=== PATIENT | male | born 1955 | race Caucasian/White ===

== ENCOUNTER → 2020-07-11 | Outpatient (CLI) | payer OTHER ==
[~2020-07-11] MED LIST: LANS30CA PO; LEVO50TA5 PO; SIMV20TA19 PO
== END | disposition home or self-care (01) ==
LOC: STAR 12:32
PROVIDERS: ATTEND Surgery
DX: Z01.818 Encounter for other preprocedural examination (principal); K46.9 Unspecified abdominal hernia without obstruction or gangrene; Z20.828 Contact with and (suspected) exposure to other viral communicable diseases
CPT/HCPCS: 87635; 93005

== ENCOUNTER 2020-07-24 11:08 | Day surgery (SDC) | payer OTHER ==
[~2020-07-24] VITALS: Ht 177.8 cm; Wt 94.4 kg
[~2020-07-24 11:08] MED LIST changes: +BUPIVACAINE/PF 0.5% ONE; +BUPIVACAINE/PF-EPI 0.5% 1:200K ONE
[2020-07-24] MEDS ORDERED: LACTATED RINGERS 1,000 ML IV SCH (11:30)
[2020-07-24] MEDS ORDERED: CHLORHEXIDINE 15 ML UDC MM ONE (11:30)
[2020-07-24 11:39] VITALS: BP 152/94
[2020-07-24] MEDS ORDERED: PROPOFOL 10 MG/ML, 20ML ONE (12:21)
[2020-07-24] MEDS ORDERED: FENTANYL PF 100 MCG/2ML ONE ×3 (12:21→13:56)
[2020-07-24] MEDS ORDERED: LIDOCAINE-MPF 2% ,5ML ONE (12:21)
[2020-07-24] MEDS ORDERED: CEFAZOLIN 1,000 MG ONE ×2 (12:37)
[2020-07-24] MEDS ORDERED: ONDANSETRON 2MG/ML, 2ML IVPush PRN (13:00)
[2020-07-24] MEDS ORDERED: OXYcodone 5 MG/5 ML ORAL.SOL UDC PO PRN (13:00)
[2020-07-24] MEDS ORDERED: ACETAMINOPHEN 325 MG TABLET PO PRN (13:00)
[2020-07-24] MEDS ORDERED: KETOROLAC 30 MG/1 ML ONE (13:29)
[2020-07-24] MEDS ORDERED: ONDANSETRON 2MG/ML, 2ML ONE (13:29)
[2020-07-24] MEDS ORDERED: SUGAMMADEX 200 MG/2 ML IVPush ONE (13:29)
[2020-07-24] MEDS ORDERED: ACETAMINOPHEN 650 MG/20.3 ML UDC ONE (13:56)
[2020-07-24] MEDS ORDERED: OXYcodone 5 MG/5 ML ORAL.SOL UDC ONE (13:56)
[2020-07-24] MEDS ORDERED: ACETAMINOPHEN 325 MG TABLET ONE (13:56)
[2020-07-24] MEDS ORDERED: METHOCARBAMOL 1,000 MG in DEXTROSE 5% 100 ML IV ONE (14:00)
[2020-07-24] MEDS: FENTANYL PF 100 MCG/2ML IV PRN ×2 (14:00→14:30)
== END 2020-07-24 16:00 | disposition home or self-care (01) ==
LOC: OUT 11:08
PROVIDERS: ATTEND Surgery
DX: K42.9 Umbilical hernia without obstruction or gangrene (principal); K21.9 Gastro-esophageal reflux disease without esophagitis; G47.30 Sleep apnea, unspecified; E78.00 Pure hypercholesterolemia, unspecified; F17.210 Nicotine dependence, cigarettes, uncomplicated; Z20.828 Contact with and (suspected) exposure to other viral communicable diseases; Z79.890 Hormone replacement therapy; Z79.899 Other long term (current) drug therapy; Z98.890 Other specified postprocedural states; Z91.018 Allergy to other foods; Z80.0 Family history of malignant neoplasm of digestive organs
CPT/HCPCS: 49652; 87635; C1781; J0690; J1885; J2405; J2704; J2800; J3010; S2900

== ENCOUNTER → 2020-09-17 | Outpatient (CLI) | payer OTHER ==
[~2020-09-17] MED LIST changes: +ASCO500T8 PO; -BUPIVACAINE/PF 0.5% ONE; -BUPIVACAINE/PF-EPI 0.5% 1:200K ONE; +CHOL10003 PO; +FISH400C3 PO; +GLUC-111 PO; +LEVO125T5 PO; +RED600CA2 PO; +co Q10 PO
[2020-09-17 11:05] LABS: BASOPHILS % (AUTO) 1 % (0-1); EOSINOPHILS % (AUTO) 1 % (1-7); LYMPHOCYTES % (AUTO) 32 % (22-44); MD NO; MEAN CORPUSCULAR HEMOGLOBIN 30.2 pg (27.5-34.5); MEAN CORPUSCULAR HGB CONC 34.3 g/dL (33.2-36.2); MEAN PLATELET VOLUME 9.8 fL (7.4-10.4); MONOCYTES % (AUTO) 11 % (2-9); NEUTROPHILS % (AUTO) 56 % (42-75); PLATELET COUNT 209 x10^3/uL (130-400); RED BLOOD COUNT 5.12 x10^6/uL (4.38-5.82); RED CELL DISTRIBUTION WIDTH 13.4 % (9.4-14.8)
[2020-09-17 11:11] LABS: ANION GAP 5 mmol/L (5-15); CALCIUM 9.6 mg/dL (8.5-10.1); CHLORIDE 112 mmol/L (98-107)
[2020-09-17 11:14] LABS: INTERNATIONAL NORMALIZED RATIO 1.01 (0.93-1.1); PROTHROMBIN TIME 10.8 Seconds (9.6-11.5)
== END | disposition home or self-care (01) ==
LOC: STAR 09:32
PROVIDERS: ATTEND Orthopaedic Surgery
DX: Z01.812 Encounter for preprocedural laboratory examination (principal); Z20.822 Contact with and (suspected) exposure to COVID-19; M17.12 Unilateral primary osteoarthritis, left knee; R94.31 Abnormal electrocardiogram [ECG] [EKG]
CPT/HCPCS: 80048; 83036; 85025; 85610; 85730; 87081; 87147; 87635; 87806; 93005; G0475

== ENCOUNTER 2020-09-23 12:04 | Observation (INO) | payer OTHER ==
[~2020-09-23] VITALS: Ht 177.8 cm; Wt 96.3 kg
[~2020-09-23 12:04] MED LIST changes: +FENTANYL PF 250 MCG/5ML ONE; +KETOROLAC 60 MG/2 ML ONE; +MIDAZOLAM 1 MG/ML, 2ML ONE; +ROPIvacaine/PF 0.2%, 20 ML ONE
[2020-09-23] MEDS ORDERED: TRANEXAMIC ACID 1,000 MG in SODIUM CHLORIDE 0.9% 100 ML IVPB ONE (12:30)
[2020-09-23] MEDS ORDERED: METOCLOPRAMIDE 5 MG/ML, 2ML IVPush PRN (12:30)
[2020-09-23] MEDS ORDERED: DIPHENHYDRAMINE 50 MG/ML, 1ML IVPush PRN (12:30)
[2020-09-23] MEDS ORDERED: ONDANSETRON 4 MG TABLET PO PRN (12:30)
[2020-09-23] MEDS ORDERED: POLYETHYLENE GLYCOL 17 GM PACKET PO PRN (12:30)
[2020-09-23] MEDS ORDERED: SENNA/DOCUSATE TABLET PO PRN (12:30)
[2020-09-23] MEDS ORDERED: HYDROmorphone 1 MG/ML, 1ML INJ IVPush PRN (12:30)
[2020-09-23] MEDS ORDERED: ALUMINUM/MAG/SIMETHICONE 30 ML UDC PO PRN (12:30)
[2020-09-23] MEDS ORDERED: PSYLLIUM PACKET PO PRN (12:30)
[2020-09-23] MEDS ORDERED: ONDANSETRON 2MG/ML, 2ML IVPush PRN (12:30)
[2020-09-23] MEDS ORDERED: DIPHENHYDRAMINE 25 MG CAPSULE PO PRN (12:30)
[2020-09-23] MEDS ORDERED: MAGNESIUM HYDROXIDE 8%, 30ML UDC PO PRN (12:30)
[2020-09-23] MEDS ORDERED: ACETAMINOPHEN 650 MG/20.3 ML UDC PO PRN (12:30)
[2020-09-23] MEDS ORDERED: PROMETHAZINE 25 MG/ML, 1ML IM PRN (12:30)
[2020-09-23 12:35] VITALS: BP 144/86
[2020-09-23] MEDS ORDERED: GABAPENTIN 300 MG CAPSULE PO ONE (13:00)
[2020-09-23] MEDS ORDERED: LACTATED RINGERS 1,000 ML IV SCH (13:00)
[2020-09-23] MEDS ORDERED: CHLORHEXIDINE 15 ML UDC MM ONE (13:00)
[2020-09-23] MEDS ORDERED: ACETAMINOPHEN 500 MG TABLET PO ONE (13:00)
[2020-09-23] MEDS ORDERED: MIDAZOLAM 1 MG/ML, 2ML ONE (13:36)
[2020-09-23] MEDS ORDERED: FENTANYL PF 250 MCG/5ML ONE ×2 (13:36→15:38)
[2020-09-23] MEDS ORDERED: METOPROLOL 1 MG/ML, 5ML ONE (14:27)
[2020-09-23] MEDS ORDERED: TRANEXAMIC ACID 100 MG/ML, 10ML ONE ×2 (14:42)
[2020-09-23] MEDS ORDERED: FENTANYL PF 100 MCG/2ML IV PRN (15:00)
[2020-09-23] MEDS ORDERED: ALBUTEROL SULFATE 2.5 MG/3 ML NPPB PRN (15:00)
[2020-09-23] MEDS ORDERED: ACETAMINOPHEN 325 MG TABLET PO PRN (15:00)
[2020-09-23] MEDS ORDERED: OXYcodone 5 MG/5 ML ORAL.SOL UDC PO PRN (15:00)
[2020-09-23] MEDS ORDERED: KETOROLAC 30 MG/1 ML IV PRN (15:00)
[2020-09-23] MEDS ORDERED: PROMETHAZINE 25 MG/ML, 1ML IV PRN (15:00)
[2020-09-23] MEDS ORDERED: DIAZEPAM 5 MG/ML, 2ML IVPush PRN (15:00)
[2020-09-23] MEDS ORDERED: LABETALOL 5MG/ML, 20ML IV PRN (15:00)
[2020-09-23] MEDS ORDERED: hydrALAzine 20 MG/ML, 1ML IV PRN (15:00)
[2020-09-23] MEDS ORDERED: MEPERIDINE/PF 25MG/0.5ML IVPush PRN (15:00)
[2020-09-23] MEDS ORDERED: ROPIvacaine/PF 0.2%, 100ML 550 ML (check volume) INJ ONE (15:00)
[2020-09-23] MEDS ORDERED: HYDROmorphone 2 MG/ML, 1ML IVPush PRN (15:00)
[2020-09-23] MEDS ORDERED: DEXAMETHASONE 4 MG/ML, 1ML ONE (15:38)
[2020-09-23] MEDS ORDERED: CEFAZOLIN 1,000 MG ONE (15:38)
[2020-09-23] MEDS ORDERED: PROPOFOL 10 MG/ML, 20ML ONE (15:38)
[2020-09-23] MEDS ORDERED: NEOSTIGMINE 1 MG/ML, 10ML ONE (15:38)
[2020-09-23] MEDS ORDERED: ROCURONIUM 10MG/ML,5ML ONE (15:38)
[2020-09-23] MEDS ORDERED: SUCCINYLCHOLINE 20 MG/ML, 10ML ONE (15:38)
[2020-09-23] MEDS ORDERED: ONDANSETRON 2MG/ML, 2ML ONE (15:38)
[2020-09-23] MEDS ORDERED: GLYCOPYRROLATE 0.2MG/1ML, 5ML ONE (15:38)
[2020-09-23] MEDS ORDERED: hydrALAzine 20 MG/ML, 1ML ONE (16:09)
[2020-09-23] MEDS ORDERED: FENTANYL PF 100 MCG/2ML ONE (16:09)
[2020-09-23] MEDS ORDERED: OXYcodone 5 MG/5 ML ORAL.SOL UDC ONE (16:10)
[2020-09-23] MEDS ORDERED: MEPERIDINE/PF 25MG/ML,1ML ONE (16:30)
[2020-09-23] MEDS ORDERED: KETOROLAC 30 MG/1 ML ONE (17:12)
[2020-09-23] MEDS: KETOROLAC 30 MG/1 ML IV SCH (17:13)
[2020-09-23 17:30] VITALS: BP 124/81
[2020-09-23] MEDS: D5%-0.45NACL+KCL 20MEQ 1,000 ML IV SCH (18:16)
[2020-09-23 19:30] VITALS: BP 97/63
[2020-09-23] MEDS: OXYcodone IR 5MG TABLET PO PRN (20:39)
[2020-09-23] MEDS: ASPIRIN 81 MG TABLET EC PO SCH (20:40)
[2020-09-23] MEDS: DOCUSATE 100 MG CAPSULE PO SCH (20:40)
[2020-09-23] MEDS ORDERED: GABAPENTIN 300 MG CAPSULE PO SCH (21:00)
[2020-09-23] MEDS ORDERED: SIMVASTATIN 20 MG TABLET PO SCH (21:00)
[2020-09-23] MEDS: CEFAZOLIN PMX 1GM/50ML 50 ML IVPB SCH (22:10)
[2020-09-23 23:29] VITALS: BP 104/54
[2020-09-24] MEDS: KETOROLAC 30 MG/1 ML IV SCH ×2 (03:01→11:08)
[2020-09-24 03:05] VITALS: BP 121/71
[2020-09-24] MEDS: OXYcodone IR 5MG TABLET PO PRN ×2 (03:26→07:39)
[2020-09-24] MEDS: D5%-0.45NACL+KCL 20MEQ 1,000 ML IV SCH (04:00)
[2020-09-24] MEDS ORDERED: LEVOTHYROXINE 125 MCG TABLET PO SCH (06:00)
[2020-09-24] MEDS ORDERED: DEXAMETHASONE 4 MG/ML, 1ML IVPush ONE (06:00)
[2020-09-24] MEDS ORDERED: PANTOPRAZOLE 40MG TABLET PO SCH (06:00)
[2020-09-24] MEDS: CEFAZOLIN PMX 1GM/50ML 50 ML IVPB SCH (06:19)
[2020-09-24 06:40] VITALS: BP 121/68
[2020-09-24] MEDS: DOCUSATE 100 MG CAPSULE PO SCH (07:40)
[2020-09-24] MEDS: ASPIRIN 81 MG TABLET EC PO SCH (07:40)
[2020-09-24] MEDS ORDERED: TAMSULOSIN 0.4 MG CAP.ER.24H PO SCH (09:00)
[2020-09-24 11:05] VITALS: BP 111/54
[2020-09-24] MEDS ORDERED: KETOROLAC 30 MG/1 ML ONE (11:06)
== END 2020-09-24 11:38 | disposition home or self-care (01) ==
LOC: OR 12:04 → ORIP 12:22 → 4NE 17:35 → DCLOUNGE 09-24 11:26
PROVIDERS: ADMIT Orthopaedic Surgery; ATTEND Orthopaedic Surgery
DX: M17.12 Unilateral primary osteoarthritis, left knee (principal); K21.9 Gastro-esophageal reflux disease without esophagitis; E78.5 Hyperlipidemia, unspecified; E03.9 Hypothyroidism, unspecified; G47.30 Sleep apnea, unspecified; Z79.899 Other long term (current) drug therapy
CPT/HCPCS: 27447; 36415; 73560; 85014; 85018; 96361; 96365; 96366; 96375; 96376; 97110; 97116; 97161; C1713; C1776; G0378; J0330; J0360; J0690; J1100; J1885; J2175; J2250; J2405; J2704; J2710; J2795; J3010; J3480; J7120

== ENCOUNTER → 2021-03-05 | Outpatient (CLI) | payer MEDICARE, OTHER ==
[~2021-03-05] MED LIST changes: -FENTANYL PF 250 MCG/5ML ONE; -KETOROLAC 60 MG/2 ML ONE; -MIDAZOLAM 1 MG/ML, 2ML ONE; -ROPIvacaine/PF 0.2%, 20 ML ONE
== END | disposition home or self-care (01) ==
LOC: CFH 09:47
PROVIDERS: ATTEND Family Medicine
DX: M85.88 Other specified disorders of bone density and structure, other site (principal)
CPT/HCPCS: 77080